=== PATIENT | female | born 1950 | race Hispanic/Latino ===

== ENCOUNTER 2021-06-27 19:04 | Inpatient (IN) | payer MEDICARE ==
[2021-06-27] MEDS ORDERED: SODIUM CHLORIDE 0.9% 250ML 250 ML IV ONE ×2 (21:45→22:00)
[2021-06-27] MEDS ORDERED: DEXTROSE 50% SYRINGE 50 ML IV PRN (22:00)
[2021-06-27] MEDS ORDERED: SODIUM CHLORIDE 0.9% 1000ML 1,000 ML ONE (22:05)
[2021-06-27] MEDS: SODIUM CHLORIDE 0.9% 1000ML 1,000 ML IV SCH (22:59)
[2021-06-27 23:13] LABS: FERRITIN 7.17 ng/mL (4.63-204.00)
[2021-06-28] VITALS (9 sets, daily range): BP systolic 101–135; BP diastolic 50–71
[2021-06-28] MEDS ORDERED: GABAPENTIN600 MG PO (00:52)
[2021-06-28] MEDS ORDERED: METFORMIN HCL500 M2 PO (00:52)
[2021-06-28] MEDS ORDERED: ZYRTEC10 M3 PO (00:52)
[2021-06-28] MEDS ORDERED: LISINOPRIL10 MG PO (00:52)
[2021-06-28] MEDS ORDERED: FISH OIL 1,0001 EA10 PO (00:52)
[2021-06-28] MEDS ORDERED: ARIMIDEX1 MG PO (00:52)
[2021-06-28] MEDS ORDERED: AMARYL2 MG PO (00:52)
[2021-06-28 02:06] LABS: BASOPHILS # (AUTO) 0.1 (0.0-0.1); BASOPHILS % 0.7 % (0.0-1.0); EOSINOPHILS # (AUTO) 0.2 (0.0-0.4); EOSINOPHILS % 2.4 % (0.0-6.0); LYMPHOCYTES # (AUTO) 1.7 (1.0-3.2); LYMPHOCYTES % 23.8 % (18.0-39.1); MEAN CORPUSCULAR HGB CONC 27.8 g/dL (31-35); MEAN CORPUSCULAR VOLUME 68.4 fL (81-99); MONOCYTES # (AUTO) 0.5 (0.2-0.8); MONOCYTES % 6.3 % (4.4-11.3); NEUTROPHILS # (AUTO) 4.7 (2.1-6.9); NEUTROPHILS % 66.5 % (38.7-80.0); PLATELET COUNT 381 x10e3/uL (140-360); RED BLOOD COUNT 3.26 x10e6/uL (3.6-5.1); RED CELL DISTRIBUTION WIDTH 16.6 % (11.7-14.4)
[2021-06-28 02:08] LABS: HEMATOCRIT 22.3 % (34.2-44.1); HEMOGLOBIN 6.2 g/dL (12.0-16.0)
[2021-06-28] MEDS: INSULIN LISPRO 100 UNIT/1 ML 3ML VIAL SQ SCH ×4 (07:30→21:29)
[2021-06-28] MEDS: SODIUM CHLORIDE 0.9% 1000ML 1,000 ML IV SCH (10:19)
[2021-06-28 15:55] LABS: CALCIUM 8.8 mg/dL (8.4-10.2); CREATININE, SERUM 0.68 mg/dL (0.57-1.11)
[2021-06-28] MEDS ORDERED: SODIUM CHLORIDE 0.9% 50ML 50 ML ONE (16:20)
[2021-06-28] MEDS ORDERED: IOPAMIDOL 370 MG/ML 200 ML INFUS..BTL INJ ONE (16:21)
[2021-06-28] MEDS: OMEGA 3 POLYUNSAT FATTY ACIDS 1000 MG SOFTGEL PO SCH ×2 (16:35→20:26)
[2021-06-28] MEDS: GABAPENTIN 300 MG CAP PO SCH (17:34)
[2021-06-29] VITALS (8 sets, daily range): BP systolic 114–130; BP diastolic 65–96
[2021-06-29 06:29] LABS: BASOPHILS % 0.7 % (0.0-1.0); EOSINOPHILS # (AUTO) 0.2 (0.0-0.4); EOSINOPHILS % 3.6 % (0.0-6.0); HEMATOCRIT 24.8 % (34.2-44.1); HEMOGLOBIN 7.6 g/dL (12.0-16.0); LYMPHOCYTES # (AUTO) 1.5 (1.0-3.2); LYMPHOCYTES % 23.8 % (18.0-39.1); MEAN CORPUSCULAR HEMOGLOBIN 21.3 pg (28-32); MEAN CORPUSCULAR HGB CONC 30.6 g/dL (31-35); MEAN CORPUSCULAR VOLUME 69.7 fL (81-99); MONOCYTES # (AUTO) 0.5 (0.2-0.8); MONOCYTES % 7.9 % (4.4-11.3); NEUTROPHILS # (AUTO) 3.9 (2.1-6.9); NEUTROPHILS % 63.3 % (38.7-80.0); PLATELET COUNT 331 x10e3/uL (140-360); RED BLOOD COUNT 3.56 x10e6/uL (3.6-5.1); RED CELL DISTRIBUTION WIDTH 19.8 % (11.7-14.4)
[2021-06-29 06:47] LABS: ANION GAP 15.2 mmol/L (8-16); CALCIUM 8.8 mg/dL (8.4-10.2); CREATININE, SERUM 0.69 mg/dL (0.57-1.11); POTASSIUM 4.2 mmol/L (3.5-5.1)
[2021-06-29] MEDS: INSULIN LISPRO 100 UNIT/1 ML 3ML VIAL SQ SCH ×4 (07:30→20:28)
[2021-06-29] MEDS: LISINOPRIL 20 MG TAB PO SCH (08:27)
[2021-06-29] MEDS: LORATADINE 10 MG TAB PO SCH (08:27)
[2021-06-29] MEDS: OMEGA 3 POLYUNSAT FATTY ACIDS 1000 MG SOFTGEL PO SCH ×3 (08:27→20:27)
[2021-06-29] MEDS: ANASTROZOLE 1 MG TAB PO SCH (08:27)
[2021-06-29] MEDS: GABAPENTIN 300 MG CAP PO SCH ×2 (08:27→18:43)
[2021-06-29] MEDS: CYANOCOBALAMIN INJ 1,000 MCG/ML VIAL IM SCH (09:57)
[2021-06-29] MEDS ORDERED: SODIUM CHLORIDE 0.9% 250ML 250 ML ONE ×2 (09:58→14:57)
[2021-06-29] MEDS ORDERED: BISACODYL 5 MG TAB EC PO ONE (12:15)
[2021-06-29] MEDS ORDERED: PEG (High)/E-LYTE SOLN 4,000 ML BTL PO ONE (12:15)
[2021-06-29] MEDS ORDERED: ACETAMINOPHEN 325 MG TAB PO PRN (13:00)
[2021-06-30] VITALS (7 sets, daily range): BP systolic 115–138; BP diastolic 55–70
[2021-06-30 05:32] LABS: BASOPHILS % 0.5 % (0.0-1.0); EOSINOPHILS # (AUTO) 0.3 (0.0-0.4); EOSINOPHILS % 4.2 % (0.0-6.0); HEMATOCRIT 30.9 % (34.2-44.1); HEMOGLOBIN 9.8 g/dL (12.0-16.0); LYMPHOCYTES # (AUTO) 1.3 (1.0-3.2); LYMPHOCYTES % 20.2 % (18.0-39.1); MEAN CORPUSCULAR HEMOGLOBIN 23.2 pg (28-32); MEAN CORPUSCULAR HGB CONC 31.7 g/dL (31-35); MONOCYTES # (AUTO) 0.6 (0.2-0.8); MONOCYTES % 8.9 % (4.4-11.3); NEUTROPHILS # (AUTO) 4.1 (2.1-6.9); NEUTROPHILS % 65.9 % (38.7-80.0); PLATELET COUNT 311 x10e3/uL (140-360); RED BLOOD COUNT 4.23 x10e6/uL (3.6-5.1); RED CELL DISTRIBUTION WIDTH 23.5 % (11.7-14.4)
[2021-06-30 06:11] LABS: ALBUMIN 3.3 g/dL (3.5-5.0); ALBUMIN/GLOBULIN RATIO 1.1 (0.8-2.0); ANION GAP 14.8 mmol/L (8-16); CALCIUM 8.9 mg/dL (8.4-10.2); CREATININE, SERUM 0.71 mg/dL (0.57-1.11); POTASSIUM 3.8 mmol/L (3.5-5.1)
[2021-06-30] MEDS: LORATADINE 10 MG TAB PO SCH (09:00)
[2021-06-30] MEDS: OMEGA 3 POLYUNSAT FATTY ACIDS 1000 MG SOFTGEL PO SCH ×3 (09:25→21:09)
[2021-06-30] MEDS: CYANOCOBALAMIN INJ 1,000 MCG/ML VIAL IM SCH (09:25)
[2021-06-30] MEDS: GABAPENTIN 300 MG CAP PO SCH ×2 (09:25→16:24)
[2021-06-30] MEDS: LISINOPRIL 20 MG TAB PO SCH (09:26)
[2021-06-30] MEDS: ANASTROZOLE 1 MG TAB PO SCH (09:29)
[2021-06-30] MEDS: INSULIN LISPRO 100 UNIT/1 ML 3ML VIAL SQ SCH ×4 (09:30→21:00)
[2021-06-30] MEDS: SUCRALFATE 1 GM TAB PO SCH ×3 (12:12→21:09)
[2021-06-30] MEDS ORDERED: LIDOCAINE HCL 2% LOCAL INJ 5 ML SDV VIAL INJ ONE (13:12)
[2021-06-30] MEDS: METRONIDAZOLE 500 MG TAB PO SCH (17:30)
[2021-06-30] MEDS: NEOMYCIN SULFATE 500 MG TAB PO SCH (18:25)
[2021-07-01] VITALS: BP 108/53
[2021-07-01 04:00] VITALS: BP 100/59
[2021-07-01 06:27] LABS: BASOPHILS % 0.6 % (0.0-1.0); EOSINOPHILS # (AUTO) 0.2 (0.0-0.4); EOSINOPHILS % 2.3 % (0.0-6.0); HEMATOCRIT 30.1 % (34.2-44.1); HEMOGLOBIN 9.1 g/dL (12.0-16.0); LYMPHOCYTES # (AUTO) 1.5 (1.0-3.2); LYMPHOCYTES % 23.4 % (18.0-39.1); MEAN CORPUSCULAR HGB CONC 30.2 g/dL (31-35); MONOCYTES # (AUTO) 0.5 (0.2-0.8); MONOCYTES % 7.7 % (4.4-11.3); NEUTROPHILS # (AUTO) 4.3 (2.1-6.9); NEUTROPHILS % 65.7 % (38.7-80.0); PLATELET COUNT 281 x10e3/uL (140-360); RED BLOOD COUNT 3.96 x10e6/uL (3.6-5.1); RED CELL DISTRIBUTION WIDTH 23.9 % (11.7-14.4)
[2021-07-01] MEDS: NEOMYCIN SULFATE 500 MG TAB PO SCH ×2 (06:44)
[2021-07-01] MEDS: METRONIDAZOLE 500 MG TAB PO SCH ×2 (06:44)
[2021-07-01 06:53] LABS: ANION GAP 14.1 mmol/L (8-16); CALCIUM 8.6 mg/dL (8.4-10.2); CREATININE, SERUM 0.72 mg/dL (0.57-1.11); POTASSIUM 4.1 mmol/L (3.5-5.1)
[2021-07-01] MEDS: SUCRALFATE 1 GM TAB PO SCH ×4 (07:30→21:00)
[2021-07-01] MEDS: INSULIN LISPRO 100 UNIT/1 ML 3ML VIAL SQ SCH ×4 (07:30→20:57)
[2021-07-01 07:53] VITALS: BP 138/67
[2021-07-01] MEDS: GABAPENTIN 300 MG CAP PO SCH ×2 (08:03→18:30)
[2021-07-01] MEDS: OMEGA 3 POLYUNSAT FATTY ACIDS 1000 MG SOFTGEL PO SCH ×3 (08:51→20:58)
[2021-07-01] MEDS: LORATADINE 10 MG TAB PO SCH (09:00)
[2021-07-01] MEDS: CYANOCOBALAMIN INJ 1,000 MCG/ML VIAL IM SCH (09:13)
[2021-07-01] MEDS ORDERED: BUPIVACAINE HCL 0.5% INJ 30 ML VIAL INJ ONE (11:04)
[2021-07-01] MEDS ORDERED: NEOSTIGMINE 1 MG/ML 10ML VIAL ONE (13:18)
[2021-07-01] MEDS ORDERED: DESFLURANE 240 ML BTL INH ONE (13:18)
[2021-07-01] MEDS ORDERED: LIDOCAINE HCL 2% LOCAL INJ 5 ML SDV VIAL INJ ONE (13:18)
[2021-07-01] MEDS ORDERED: POVIDONE IODINE 0.05% 0.05 % ML PO ONE (13:18)
[2021-07-01] MEDS ORDERED: PROPOFOL IV EMULSION 10 MG/ML 20 ML VIAL ONE (13:18)
[2021-07-01] MEDS ORDERED: ROCURONIUM BROMIDE 10 MG/ML 5ML VIAL IV ONE (13:18)
[2021-07-01] MEDS ORDERED: GLYCOPYRROLATE INJ 0.2 MG/ML VIAL ONE (13:18)
[2021-07-01] MEDS ORDERED: ONDANSETRON HCL INJ 2MG/ML 2ML 2 MG/ML VIAL ONE (13:18)
[2021-07-01] MEDS ORDERED: LABETALOL HCL 5 MG/ML 20ML VIAL ONE (13:18)
[2021-07-01] MEDS ORDERED: MORPHINE SULFATE 1 MG/ML 30ML PCA IV PRN (13:30)
[2021-07-01] MEDS ORDERED: ACETAMINOPHEN 1000 MG/100 ML IV PRN (13:30)
[2021-07-01] MEDS ORDERED: KETOROLAC TROMETHAMINE 30 MG/ML VIAL IV PRN (13:30)
[2021-07-01] MEDS ORDERED: DIPHENHYDRAMINE HCL 25 MG CAP PO PRN (13:30)
[2021-07-01] MEDS ORDERED: NALOXONE HCL INJ 0.4 MG/ML AMP IV PRN (13:30)
[2021-07-01] MEDS ORDERED: FENTANYL CITRATE/PF 100MCG/2 ML INJ ONE (13:51)
[2021-07-01] MEDS: ONDANSETRON HCL INJ 2MG/ML 2ML 2 MG/ML VIAL IV PRN (14:33)
[2021-07-01] MEDS: SODIUM CHLORIDE 0.9% 1000ML 1,000 ML IV SCH (14:34)
[2021-07-01] MEDS ORDERED: MORPHINE SULFATE 1 MG/ML 30ML PCA ONE (14:45)
[2021-07-01] MEDS: CEFOXITIN 1GM/0.9% NS 50ML 50 ML IV SCH (17:09)
[2021-07-01 18:19] LABS: CALCIUM 8.2 mg/dL (8.4-10.2); CREATININE, SERUM 0.74 mg/dL (0.57-1.11)
[2021-07-01] MEDS: LISINOPRIL 20 MG TAB PO SCH (18:30)
[2021-07-01] MEDS: ANASTROZOLE 1 MG TAB PO SCH (18:30)
[2021-07-01 20:00] VITALS: BP 124/66
[2021-07-02] VITALS (7 sets, daily range): BP systolic 111–126; BP diastolic 60–91
[2021-07-02] MEDS: SODIUM CHLORIDE 0.9% 1000ML 1,000 ML IV SCH ×3 (00:29→19:30)
[2021-07-02] MEDS: CEFOXITIN 1GM/0.9% NS 50ML 50 ML IV SCH ×2 (00:29→05:21)
[2021-07-02 05:52] LABS: BASOPHILS % 0.4 % (0.0-1.0); EOSINOPHILS # (AUTO) 0.1 (0.0-0.4); HEMOGLOBIN 9.1 g/dL (12.0-16.0); LYMPHOCYTES # (AUTO) 1.2 (1.0-3.2); LYMPHOCYTES % 12.7 % (18.0-39.1); MEAN CORPUSCULAR HEMOGLOBIN 22.6 pg (28-32); MEAN CORPUSCULAR HGB CONC 29.4 g/dL (31-35); MEAN CORPUSCULAR VOLUME 76.9 fL (81-99); MONOCYTES # (AUTO) 0.7 (0.2-0.8); MONOCYTES % 7.3 % (4.4-11.3); NEUTROPHILS # (AUTO) 7.3 (2.1-6.9); NEUTROPHILS % 78.2 % (38.7-80.0); PLATELET COUNT 279 x10e3/uL (140-360); RED BLOOD COUNT 4.03 x10e6/uL (3.6-5.1); RED CELL DISTRIBUTION WIDTH 24.5 % (11.7-14.4)
[2021-07-02] MEDS ORDERED: MORPHINE SULFATE 1 MG/ML 30ML PCA IV PRN (06:00)
[2021-07-02 06:34] LABS: ANION GAP 12.9 mmol/L (8-16); CALCIUM 8.5 mg/dL (8.4-10.2); CREATININE, SERUM 0.73 mg/dL (0.57-1.11); POTASSIUM 3.9 mmol/L (3.5-5.1)
[2021-07-02] MEDS: INSULIN LISPRO 100 UNIT/1 ML 3ML VIAL SQ SCH ×4 (07:30→21:00)
[2021-07-02 08:09] LABS: LYMPHOCYTES % (MANUAL) 13 % (19-48); MONOCYTES % (MANUAL) 4 % (3.4-9.0); NEUTROPHILS % (MANUAL) 83 % (40-74)
[2021-07-02 08:10] LABS: ANISOCYTOSIS MARKED; HYPOCHROMASIA MODERATE; MICROCYTOSIS MODERATE; PLATELET ESTIMATE ADEQUATE; PLATELET MORPHOLOGY COMMENT NORMAL; RBC MORPHOLOGY COMMENT ABNORMAL
[2021-07-02 08:11] LABS: POLYCHROMASIA FEW
[2021-07-02] MEDS: GABAPENTIN 300 MG CAP PO SCH ×2 (09:06→17:13)
[2021-07-02] MEDS: LISINOPRIL 20 MG TAB PO SCH (09:06)
[2021-07-02] MEDS: SUCRALFATE 1 GM TAB PO SCH ×4 (09:06→22:03)
[2021-07-02] MEDS: CYANOCOBALAMIN INJ 1,000 MCG/ML VIAL IM SCH (09:06)
[2021-07-02] MEDS: ANASTROZOLE 1 MG TAB PO SCH (09:06)
[2021-07-02] MEDS: LORATADINE 10 MG TAB PO SCH (09:06)
[2021-07-02] MEDS: OMEGA 3 POLYUNSAT FATTY ACIDS 1000 MG SOFTGEL PO SCH ×3 (09:06→21:00)
[2021-07-02] MEDS: ONDANSETRON HCL INJ 2MG/ML 2ML 2 MG/ML VIAL IV PRN (09:30)
[2021-07-03] VITALS (8 sets, daily range): BP systolic 123–141; BP diastolic 60–73
[2021-07-03] MEDS: SODIUM CHLORIDE 0.9% 1000ML 1,000 ML IV SCH (06:20)
[2021-07-03] MEDS: INSULIN LISPRO 100 UNIT/1 ML 3ML VIAL SQ SCH ×4 (07:30→20:17)
[2021-07-03] MEDS: SUCRALFATE 1 GM TAB PO SCH (07:37)
[2021-07-03] MEDS ORDERED: KETOROLAC TROMETHAMINE 30 MG/ML VIAL IV SCH (08:00)
[2021-07-03] MEDS: ANASTROZOLE 1 MG TAB PO SCH (08:42)
[2021-07-03] MEDS: OMEGA 3 POLYUNSAT FATTY ACIDS 1000 MG SOFTGEL PO SCH (08:42)
[2021-07-03] MEDS: LORATADINE 10 MG TAB PO SCH (08:42)
[2021-07-03] MEDS: CYANOCOBALAMIN INJ 1,000 MCG/ML VIAL IM SCH (08:42)
[2021-07-03] MEDS: LISINOPRIL 20 MG TAB PO SCH (08:42)
[2021-07-03] MEDS: GABAPENTIN 300 MG CAP PO SCH ×2 (08:42→17:01)
[2021-07-03] MEDS ORDERED: BISACODYL 10 MG SUPP PR ONE (09:15)
[2021-07-03] MEDS ORDERED: BISACODYL 10 MG SUPP PR PRN (09:15)
[2021-07-03] MEDS: SENNA-S TABLET PO SCH ×2 (10:42→17:01)
[2021-07-03] MEDS: MORPHINE SULFATE 15MG TAB CR PO PRN (20:23)
[2021-07-04] VITALS (8 sets, daily range): BP systolic 130–156; BP diastolic 67–83
[2021-07-04 05:22] LABS: BASOPHILS % 0.5 % (0.0-1.0); EOSINOPHILS # (AUTO) 0.3 (0.0-0.4); HEMATOCRIT 28.8 % (34.2-44.1); HEMOGLOBIN 8.5 g/dL (12.0-16.0); LYMPHOCYTES % 15.3 % (18.0-39.1); MEAN CORPUSCULAR HEMOGLOBIN 22.8 pg (28-32); MEAN CORPUSCULAR HGB CONC 29.5 g/dL (31-35); MEAN CORPUSCULAR VOLUME 77.4 fL (81-99); MONOCYTES # (AUTO) 0.5 (0.2-0.8); MONOCYTES % 6.8 % (4.4-11.3); NEUTROPHILS # (AUTO) 4.8 (2.1-6.9); NEUTROPHILS % 72.2 % (38.7-80.0); PLATELET COUNT 232 x10e3/uL (140-360); RED BLOOD COUNT 3.72 x10e6/uL (3.6-5.1); RED CELL DISTRIBUTION WIDTH 24.9 % (11.7-14.4)
[2021-07-04 06:00] LABS: ANION GAP 12.4 mmol/L (8-16); BLOOD UREA NITROGEN < 5 mg/dL (7-26); CARBON DIOXIDE 22 mmol/L (22-29); CHLORIDE 107 mmol/L (98-107); CREATININE, SERUM 0.58 mg/dL (0.57-1.11); EST GLOMERULAR FILTRATION RATE 102 ML/MIN (60-); GLUCOSE 103 mg/dL (74-118); POTASSIUM 3.4 mmol/L (3.5-5.1); SODIUM 138 mmol/L (136-145)
[2021-07-04 06:18] LABS: BUN/CREATININE RATIO 9 (6-25)
[2021-07-04] MEDS: INSULIN LISPRO 100 UNIT/1 ML 3ML VIAL SQ SCH ×4 (07:10→20:26)
[2021-07-04] MEDS: LORATADINE 10 MG TAB PO SCH (08:38)
[2021-07-04] MEDS: GABAPENTIN 300 MG CAP PO SCH ×2 (08:38→16:48)
[2021-07-04] MEDS: CYANOCOBALAMIN INJ 1,000 MCG/ML VIAL IM SCH (08:38)
[2021-07-04] MEDS: ANASTROZOLE 1 MG TAB PO SCH (08:38)
[2021-07-04] MEDS: LISINOPRIL 20 MG TAB PO SCH (08:39)
[2021-07-04] MEDS: SENNA-S TABLET PO SCH ×2 (08:39→16:48)
[2021-07-04] MEDS: POTASSIUM CHLORIDE 10MEQ EA PO SCH ×2 (11:33→15:02)
[2021-07-04] MEDS ORDERED: ONDANSETRON HCL 4 MG ORAL DISINTEGRATING TAB PO PRN (14:45)
[2021-07-04] MEDS: KETOROLAC TROMETHAMINE 30 MG/ML VIAL IV PRN (20:24)
[2021-07-05] VITALS: BP 140/72
[2021-07-05 04:00] VITALS: BP 146/68
[2021-07-05 07:30] VITALS: BP 138/74
[2021-07-05] MEDS: INSULIN LISPRO 100 UNIT/1 ML 3ML VIAL SQ SCH ×4 (07:30→21:47)
[2021-07-05 08:14] VITALS: BP 138/74
[2021-07-05] MEDS: ANASTROZOLE 1 MG TAB PO SCH (08:49)
[2021-07-05] MEDS: LORATADINE 10 MG TAB PO SCH (08:49)
[2021-07-05] MEDS: GABAPENTIN 300 MG CAP PO SCH ×2 (08:49→17:50)
[2021-07-05] MEDS: LISINOPRIL 20 MG TAB PO SCH (08:50)
[2021-07-05] MEDS: SENNA-S TABLET PO SCH ×2 (08:50→17:50)
[2021-07-05 15:46] VITALS: BP 123/64
[2021-07-05 20:00] VITALS: BP 110/68
[2021-07-06] VITALS (7 sets, daily range): BP systolic 132–143; BP diastolic 64–77
[2021-07-06] MEDS: MORPHINE SULFATE 15MG TAB CR PO PRN (06:32)
[2021-07-06] MEDS: INSULIN LISPRO 100 UNIT/1 ML 3ML VIAL SQ SCH ×4 (07:30→20:32)
[2021-07-06] MEDS: LISINOPRIL 20 MG TAB PO SCH (08:28)
[2021-07-06] MEDS: ANASTROZOLE 1 MG TAB PO SCH (08:28)
[2021-07-06] MEDS: LORATADINE 10 MG TAB PO SCH (08:28)
[2021-07-06] MEDS: SENNA-S TABLET PO SCH ×2 (08:28→17:09)
[2021-07-06] MEDS: GABAPENTIN 300 MG CAP PO SCH ×2 (08:28→17:09)
[2021-07-06 12:06] LABS: BASOPHILS % 0.6 % (0.0-1.0); EOSINOPHILS # (AUTO) 0.2 (0.0-0.4); EOSINOPHILS % 3.2 % (0.0-6.0); HEMOGLOBIN 9.9 g/dL (12.0-16.0); LYMPHOCYTES # (AUTO) 1.1 (1.0-3.2); LYMPHOCYTES % 17.7 % (18.0-39.1); MEAN CORPUSCULAR VOLUME 76.7 fL (81-99); MONOCYTES # (AUTO) 0.4 (0.2-0.8); MONOCYTES % 5.8 % (4.4-11.3); NEUTROPHILS # (AUTO) 4.5 (2.1-6.9); NEUTROPHILS % 72.4 % (38.7-80.0); PLATELET COUNT 310 x10e3/uL (140-360); RED CELL DISTRIBUTION WIDTH 25.3 % (11.7-14.4)
[2021-07-06 12:28] LABS: ANION GAP 16.3 mmol/L (8-16); CALCIUM 9.3 mg/dL (8.4-10.2); CREATININE, SERUM 0.79 mg/dL (0.57-1.11); POTASSIUM 4.3 mmol/L (3.5-5.1)
[2021-07-06] MEDS: KETOROLAC TROMETHAMINE 30 MG/ML VIAL IV PRN (17:26)
[2021-07-07 00:40] VITALS: BP 148/63
[2021-07-07 07:59] VITALS: BP 148/73
[2021-07-07 08:14] VITALS: BP 148/73
[2021-07-07] MEDS: INSULIN LISPRO 100 UNIT/1 ML 3ML VIAL SQ SCH (08:20)
[2021-07-07] MEDS: ANASTROZOLE 1 MG TAB PO SCH (08:21)
[2021-07-07] MEDS: SENNA-S TABLET PO SCH (08:21)
[2021-07-07] MEDS: LISINOPRIL 20 MG TAB PO SCH (08:21)
[2021-07-07] MEDS: GABAPENTIN 300 MG CAP PO SCH (08:21)
[2021-07-07] MEDS: LORATADINE 10 MG TAB PO SCH (08:29)
[2021-07-07] MEDS ORDERED: INSULIN GLARGINE 100 UNITS/ML VIAL SQ ONE (08:45)
[2021-07-07 09:25] LABS: BASOPHILS # (AUTO) 0.1 (0.0-0.1); BASOPHILS % 1.2 % (0.0-1.0); EOSINOPHILS # (AUTO) 0.3 (0.0-0.4); EOSINOPHILS % 5.8 % (0.0-6.0); HEMATOCRIT 30.3 % (34.2-44.1); LYMPHOCYTES # (AUTO) 1.3 (1.0-3.2); LYMPHOCYTES % 25.2 % (18.0-39.1); MEAN CORPUSCULAR HGB CONC 29.7 g/dL (31-35); MEAN CORPUSCULAR VOLUME 77.3 fL (81-99); MONOCYTES # (AUTO) 0.5 (0.2-0.8); MONOCYTES % 9.6 % (4.4-11.3); NEUTROPHILS % 57.8 % (38.7-80.0); PLATELET COUNT 302 x10e3/uL (140-360); RED BLOOD COUNT 3.92 x10e6/uL (3.6-5.1); RED CELL DISTRIBUTION WIDTH 25.5 % (11.7-14.4)
== END 2021-07-07 11:06 | disposition home or self-care (01) | DRG 331 ==
LOC: MED/SURG 20:49 → OBSVTOIN 06-28 10:54
PROVIDERS: ADMIT Internal Medicine; ATTEND Internal Medicine
PROC: 0DTF4ZZ Resection of Right Large Intestine, Percutaneous Endoscopic Approach (ICD-10-PCS; principal; 2021-06-28)
PROC: 07BB4ZX Excision of Mesenteric Lymphatic, Percutaneous Endoscopic Approach, Diagnostic (ICD-10-PCS; 2021-06-28)
PROC: 0DB98ZX Excision of Duodenum, Via Natural or Artificial Opening Endoscopic, Diagnostic (ICD-10-PCS; 2021-06-30)
PROC: 0DB78ZX Excision of Stomach, Pylorus, Via Natural or Artificial Opening Endoscopic, Diagnostic (ICD-10-PCS; 2021-06-30)
PROC: 0DBC8ZX Excision of Ileocecal Valve, Via Natural or Artificial Opening Endoscopic, Diagnostic (ICD-10-PCS; 2021-06-30)
PROC: 0DBL8ZX Excision of Transverse Colon, Via Natural or Artificial Opening Endoscopic, Diagnostic (ICD-10-PCS; 2021-06-30)
PROC: 30233N1 Transfusion of Nonautologous Red Blood Cells into Peripheral Vein, Percutaneous Approach (ICD-10-PCS; 2021-06-30)
DX: C18.0 Malignant neoplasm of cecum (principal); Z85.3 Personal history of malignant neoplasm of breast; D50.9 Iron deficiency anemia, unspecified; E11.40 Type 2 diabetes mellitus with diabetic neuropathy, unspecified; Z79.899 Other long term (current) drug therapy; I10 Essential (primary) hypertension; E78.5 Hyperlipidemia, unspecified; D63.0 Anemia in neoplastic disease; K44.9 Diaphragmatic hernia without obstruction or gangrene; K64.8 Other hemorrhoids; K57.30 Diverticulosis of large intestine without perforation or abscess without bleeding; E88.09 Other disorders of plasma-protein metabolism, not elsewhere classified; E53.8 Deficiency of other specified B group vitamins; Z20.822 Contact with and (suspected) exposure to COVID-19; E77.8 Other disorders of glycoprotein metabolism; R91.8 Other nonspecific abnormal finding of lung field; K80.20 Calculus of gallbladder without cholecystitis without obstruction; R33.9 Retention of urine, unspecified
CPT/HCPCS: 36415; 43239; 45380; 71250; 74177; 80048; 80053; 82270; 82378; 82607; 82728; 82746; 82948; 83540; 84466; 85025; 86850; 86900; 86920; 88305; 88309; 88312; 88342; 93005; 96360; 96372; 99251; G0378; J1885; J2001; J2270; J2405; J2710; J3010; J3420; J7030; J7050; P9016; Q9967; U0002

== ENCOUNTER → 2022-06-01 | Outpatient (CLI) | payer MEDICARE ==
[~2022-06-01] MED LIST: AMARYL2 MG PO; ARIMIDEX1 MG PO; FISH OIL 1,0001 EA10 PO; GABAPENTIN600 MG PO; IOPAMIDOL 370 MG/ML 100 ML INFUS..BTL INJ ONE; LISINOPRIL10 MG PO; METFORMIN HCL500 M2 PO; ZYRTEC10 M3 PO
[2022-06-01 08:52] LABS: CREATININE, SERUM 0.7 mg/dL (0.57-1.11)
== END ==
LOC: CT 08:02
PROVIDERS: ATTEND Family Medicine
DX: E11.9 Type 2 diabetes mellitus without complications (principal); Z17.0 Estrogen receptor positive status [ER+]; C50.112 Malignant neoplasm of central portion of left female breast; C18.5 Malignant neoplasm of splenic flexure; D50.0 Iron deficiency anemia secondary to blood loss (chronic); I74.10 Embolism and thrombosis of unspecified parts of aorta; Z13.89 Encounter for screening for other disorder; E55.9 Vitamin D deficiency, unspecified; Z79.899 Other long term (current) drug therapy
CPT/HCPCS: 36415; 71260; 74177; 82565; 84520; Q9967

== ENCOUNTER → 2022-11-30 | Outpatient (CLI) | payer MEDICARE ==
[2022-11-30 08:09] LABS: CREATININE, SERUM 0.69 mg/dL (0.57-1.11)
== END ==
LOC: CT 06:56
PROVIDERS: ATTEND Family Medicine
DX: C50.112 Malignant neoplasm of central portion of left female breast (principal); Z17.0 Estrogen receptor positive status [ER+]
CPT/HCPCS: 36415; 71260; 74177; 82565; 84520; Q9967

== ENCOUNTER → 2024-08-24 | Outpatient (REF) | payer MEDICARE ==
[2024-08-24 12:39] LABS: CREATININE, SERUM 0.8 mg/dL (0.57-1.11)
== END ==
LOC: CT 11:37
PROVIDERS: ATTEND Internal Medicine Hematology & Oncology
DX: C18.2 Malignant neoplasm of ascending colon (principal); D50.0 Iron deficiency anemia secondary to blood loss (chronic)
CPT/HCPCS: 36415; 71260; 74177; 82565; 84520; Q9967